=== PATIENT | male | born 1930 | race Caucasian/White ===

== ENCOUNTER 2016-09-24 13:41 | Emergency (ER) | payer OTHER ==
[~2016-09-24] VITALS: Ht 160 cm; Wt 58.6 kg
[~2016-09-24 13:41] MED LIST: AMLODIPINE BESYL5 MG PO; ARIPIPRAZOLE5 MG PO; AZOPT 1% O200 DROP/1 LEFT EYE; BENZONATATE100 MG PO; CALCIUM + D SO1 EACH PO; COSOPT EYE DROPS5 ML RIGHT EYE; CYTOMEL25 MCG PO; DESYREL 150 MG150 MG PO; DESYREL100 MG PO; DONEPEZIL HCL5 MG PO; DORZOLAMIDE RIGHT EYE; EFFEXOR XR150 MG PO; EFFEXOR XR75 MG PO; EFFEXOR25 MG PO; ENSURE LIQUID237 ML PO; ESCITALOPRAM OX10 MG PO; FISH OIL 1,0001 EAC7 PO; FOLIC ACID1 MG PO; METHOTREXATE2.5 MG PO; MILK OF MAGNESI10 ML PO; MIRTAZAPINE15 MG PO; MIRTAZAPINE30 MG PO; NEXIUM 24HR20 MG PO; NORVASC10 MG PO; PRAVACHOL40 MG PO; PRAVASTATIN SOD40 MG PO; PREDNISONE10 MG PO; PREDNISONE20 MG PO; PREDNISONE5 MG PO; RESTORIL7.5 MG PO; RITALIN10 MG PO; RITALIN5 MG PO; SEROPHENE50 MG PO; TIMOLOL RIGHT EYE; TRAZODONE HCL100 MG PO; TREXALL5 MG PO; TREXALL7.5 MG PO; VENLAFAXINE H37.5 MG PO; VITAMIN A10000 UNIT PO; [UNRECOGNIZED DRUG - OTHER] PO; vitamin a PO
[2016-09-24 15:16] LABS: HEMATOCRIT 38.2 % (38.0-50.0); MCH 32.5 PG (29.0-34.0); MCHC 34.3 G/DL (30.0-36.0); MCV 94.8 FL (86-99); MEAN PLAT.VOLUME 9.4 uM^3 (9.0-12.4); PLATELET COUNT 217 K/uL (156-360); RBC DIS.WIDTH-CV 13.9 % (11.8-14.6); RBC DIS.WIDTH-SD 45.4 % (39-53); RED BLOOD COUNT 4.03 M/uL (4.00-5.50); WHITE BLOOD COUNT 9.4 K/uL (4.1-10.2)
[2016-09-24 15:23] LABS: CHLORIDE 105 mEq/L (99-109); POTASSIUM 4.1 mEq/L (3.7-5.4); SODIUM 141 mEq/L (136-147)
[2016-09-24 15:25] LABS: GLUCOSE 103 mg/dL (70-99)
[2016-09-24 15:26] LABS: ANION GAP 9 MEQ/L (2-14)
[2016-09-24 15:29] LABS: GFR ESTIMATE (CALCULATED) > 59 mL/min/; UREA NITROGEN (BUN) 13 mg/dL (9-23)
[2016-09-24] MEDS ORDERED: KEFLEX500 MG PO (18:20)
[2016-09-24 18:52] VITALS: BP 159/85
== END 2016-09-24 18:53 | disposition home or self-care (01) ==
LOC: EME 13:41
DX: S02.2XXA Fracture of nasal bones, initial encounter for closed fracture (principal); W18.09XA Striking against other object with subsequent fall, initial encounter; R55 Syncope and collapse; E78.5 Hyperlipidemia, unspecified; I10 Essential (primary) hypertension; G43.909 Migraine, unspecified, not intractable, without status migrainosus; K21.9 Gastro-esophageal reflux disease without esophagitis; Z96.652 Presence of left artificial knee joint; Z87.891 Personal history of nicotine dependence
CPT/HCPCS: 70160; 70450; 71020; 80048; 85027; 93005; 99281; 99284